=== PATIENT | female | born 1995 | race Caucasian/White ===

== ENCOUNTER 2016-12-03 14:45 | Inpatient (IN) | payer OTHER ==
[~2016-12-03] VITALS: Ht 162.6 cm; Wt 80.7 kg
[~2016-12-03 14:45] MED LIST: Morphine PF 1 mg/mL 10 mL Inj ONE; Ondansetron 2 mg/mL 2 mL Inj ONE; Oxytocin 10 Unit/mL Inj ONE; TAM75UDCAP PO; fentaNYL-PF 50 mCg/mL 2 mL Inj ONE
[2016-12-03] MEDS ORDERED: Hemorrhage Kit, Post Partum XX PRN (16:00)
[2016-12-03] MEDS ORDERED: CeFAZolin 2 Gm/50 mL D5W Premix IV ONE (16:00)
[2016-12-03 16:10] LABS: Mean Corpuscular Hemoglobin 28.6 pg (27.0-35.0); Mean Corpuscular Volume 86.5 fL (81-100)
--- NOTE | 2016-12-03 16:46 | PCM.HPANE ---
Patient Data Date of Service: Dec 03, 2016 Surgeon Admitting Provider:Mendez Bo MD Attending Provider:Mendez Bo MD Primary Care Physician:Karel Other Provider:Tracee Romero Anesthesia Reason for Visit repeat c section repeat c section Ht/WT & BMI Weight (Kilograms): 80.7 Body Mass Index 30.6 Allergies Coded Allergies: No Known Allergies (Unverified , 05/26/15) Past Anesthesia History Anesthesia History: Denies:: Abnormal Airway Diabetes History Hx Diabetes?: No MRSA MRSA: No Medications Hypertension Medication: No Home Meds Incl Beta Tiara: No Active Scripts Oseltamivir Phosphate (Tamiflu)75 Mg Pbyecmm66 Mg PO BID #9 CAPSULE Ref 0 Prov:Sushant Duarte 05/26/15 History History of ENT Problems?: No HEENT History: Denies:: Abnormal Airway Denture Type: None Teeth Condition: Within Normal Limits Hx of Heart Problems?: No Cardiovascular History: Denies:: Congestive Heart Failure Hypertension Hx of Respiratory Problem?: No Respiratory History: Denies:: Tuberculosis Hx Neurologic Problems?: No Hx of GI Problems?: No Gastrointestinal History: Denies:: Gastroesphageal Reflux Hx of Problems?: No HX of Peritoneal Dialysis: No Female Hx: Positive for:: Currently (Hx previous C/S) Hx Musculoskeletal Problems?: No Hx of Psycho/Social Problems?: No Hx Surgeries?: Yes (APPY, C SECTION, TONSILS) Hx Diabetes: No Hx Alcohol Use: NoHx Substance Use: No Smoking Status: Never Smoker Have You Smoked inLast 12 mo: No Stop/Bang Treated for Sleep Apnea?: No Do You Have a CPAP Machine?: No SURJIT Risk Assessment: Low Risk, <3 Yes Risk Assessment Category Category 1A: Patient has history of documented sleep apnea, and HAS NOT received any narcotic, sedative or anesthesia administration during this stay. Category 1B: Patient has history of documented sleep apnea, and HAS received any narcotic , sedative or anesthesia administration during this stay Category 2: Patient has SUSPECTED Obstructive Sleep Apnea, and HAS received any narcotic , sedative or anesthesia administration during this stay. Category 3: Patient has SUSPECTED Obstructive Sleep Apnea and HAS NOT received narcotic, sedative or anesthesia administration during this stay. Category 4: Outpatient in Procedural Areas with known sleep apnea or who screen positive for High Risk via the STOP/BANG questionnaire. Exam Exam General Appearance: Alert, Oriented X3, Cooperative HEENT/AIRWAY: MP 2, Neck Movement (FUll), Mouth Opening (Wide) Lungs: Clear to Auscultation, Normal Air Movement Heart: Regular Rate/Rhythm, Normal S1, Normal S2 Meds/Labs/Diagnostics Admission Meds Current Medications Lactated Ringer's (Lr) 1,000 ml @ 125 mls/hr Q8H IV Last administered on t 16:24; Start 12/03/16 at 16:00; Stop 12/03/16 at 23:59 Labs Test 12/03/16 15:35 12/03/16 16:00 Hold Purple Top Tube Received (Received) White Blood Count 14.1th/mm3 (3.8-10.1) Red Blood Count 4.51mil/mm3 (3.90-5.20) Hemoglobin 12.9g/dL (12.0-15.6) Hematocrit 39.0% (35.0-46.0) Mean Corpuscular Volume 86.5fL (81-100) Mean Corpuscular Hemoglobin 28.6pg (27.0-35.0) Mean Corpuscular Hemoglobin Concent 33.1% (32.0-37.0) Red Cell Distribution Width 14.1% (12.3-15.4) Platelet Count 258bil/L (150-400) Plan Impression Patient chart reviewed, patient interviewed and anesthestic plan with risks, benefits, and alternatives discussed, and informed consent obtained. NPO per Anesth. Guidelines: Yes ASA Physical Status: ASA2 Mod Systemic Disease Anesthetic Plan: SAB Bene/Risks/Altern/Consents: Yes HP Complete Prior to Induction: Yes Cassius Maki MD Dec 03, 2016 16:46
[2016-12-03] MEDS ORDERED: Dexamethasone 4 mg/mL Inj IVPUSH PRN (16:50)
[2016-12-03] MEDS ORDERED: Atropine 0.4 mg/mL Inj IV PRN (16:50)
[2016-12-03] MEDS ORDERED: MetoCLOpramide 5 mg/mL 2 mL Inj IVPUSH PRN (16:50)
[2016-12-03] MEDS ORDERED: Ondansetron 2 mg/mL 2 mL Inj IVPUSH PRN (16:50)
[2016-12-03] MEDS ORDERED: EPHEDrine Sulfate 50 mg/mL Inj IVPUSH PRN (16:50)
[2016-12-03] MEDS ORDERED: fentaNYL-PF 50 mCg/mL 2 mL Inj IVPUSH PRN (16:50)
[2016-12-03] MEDS ORDERED: Sodium Citrate-Citric Acid 15 mL Solution ONE (17:20)
[2016-12-03] MEDS ORDERED: Sodium Citrate-Citric Acid 15 mL Solution PO ONE (17:29)
[2016-12-03] MEDS ORDERED: Lactated Ringer's 1,000 ML IV SCH (19:21)
[2016-12-03] MEDS ORDERED: hydrOXYzine Pamoate 25 mg Capsule PO PRN (19:25)
[2016-12-03] MEDS ORDERED: Influenza (Adult) Vaccine 0.5 mL Syringe IM ONE (19:25)
[2016-12-03] MEDS ORDERED: Hemorrhage Kit, Post Partum XX ONE (19:25)
[2016-12-03] MEDS ORDERED: TdaP Vaccine 0.5 mL Inj IM ONE (19:25)
[2016-12-03] MEDS ORDERED: Measles-Mumps-Rubella Vaccine 0.5 mL Inj SUBQ ONE (19:25)
[2016-12-03] MEDS ORDERED: Oxytocin 30 Units/500 mL LR 30 UNITS in IV Premix 1 EACH IV PRN (19:25)
[2016-12-03] MEDS ORDERED: Oxytocin 10 Unit/mL Inj IM PRN (19:25)
[2016-12-03] MEDS ORDERED: Acetaminophen IV 1,000 MG in IV Premix 1 EACH IV PRN (19:25)
[2016-12-03] MEDS ORDERED: LANOlin HPA 7 Gm Ointment TOPICAL PRN (19:25)
[2016-12-03] MEDS ORDERED: Carboprost 250 mCg/mL Inj IM PRN (19:25)
[2016-12-03] MEDS ORDERED: Sodium Chloride LOK Flush 10 mL Syringe IVFLUSH PRN (19:25)
[2016-12-03] MEDS ORDERED: Methylergonovine 0.2 mg/mL Inj IM PRN (19:25)
--- NOTE | 2016-12-03 20:38 | PCM.ANEP1 ---
Post Anesthesia PACU Phase 1 Assessment Date of Service: Dec 03, 2016 Vital Signs See OB documentation Anesthetic Administered: SAB Level of Alertness: Awake, talking ENRIQUEZ's with Equal Strength: No Pain: No Pain Scale Score: 0 Nausea or Vomiting: No CV Function & Hydration Stable: Yes Airway Device: Oxygen Delivery: Room Air Lungs: Normal Air Movement Dermatome Level: T10 (Umbilicus) PACU Phase 2 Assessment Complications: No Follow up Care: N/A Patient Instructions Provided: N/A Cassius Maki MD Dec 03, 2016 20:37
[2016-12-04] MEDS: CeFAZolin Inj 2 GM in IV Premix 1 EACH IV SCH ×2 (02:28→10:33)
--- NOTE | 2016-12-04 04:14 | HP ---
[address] [address] HISTORY AND PHYSICAL PATIENT: PIPER OROPEZA : 1995 MR#: [id number] ADMIT: 12/03/2016 JOB ID: [id number] DATE: 12/03/2016, at 12:00 hour. [facility] NOTE: The patient is a 21-year-old, G2, P1, AB0, woman, followed prenatally at [facility], see record for details. Due date is December 06, 2016, placing the patient at 39 and 4/7 weeks of gestation on admission. She has had prior section for breech, and she requested trial of labor this time as in vertex presentation. However, if undelivered by December 03, 2016, she requested repeat section be accomplished, and this is the reason for admission today as labor and delivery have not occurred. The patient has understood the risks of surgery, including bleeding, infection, injury to the urinary tract and bowel, anesthetic risks, incisional problems, postoperative deep venous thrombosis/pulmonary embolus, etc. She has had all her questions answered, no guarantees have not been stated or implied, and she has signed informed consent for surgery. In summary, then, the patient has been admitted to [facility] at 39 and 4/7 weeks gestation on December 03, 2016, for repeat section, yet no tubal ligation. PHYSICAL EXAMINATION: Last height, weight and blood pressure in the office: 63 inches, 180 pounds and 118/60 respectively. Neck: No thyromegaly. Lungs: Clear to auscultation and percussion. Heart: Regular in rate and rhythm. Abdomen: Fundal height at last check 38.5 cm in the office. Positive heartbeat. Vertex presentation. Cervical examination deferred currently. DIAGNOSTIC DATA: See laboratory report for results. IMPRESSION: 1. A 39 and 4/7 weeks gestation. 2. Prior section, now for repeat at patient's request after initial interest in trial of labor until today. 3. Planning IUD for contraception . 4. Increased weight gain in (close to 50 pounds). 5. Rh-negative status, having received RhoGAM injection during . 6. Mild anemia noted early in the third trimester, having used iron therapy subsequently. 7. Surgical history: a. (2014). b. Appendectomy (2007). 8. No known drug allergies. 9. Family history of diabetes (father), hypertension (father), thyroid disease (mother), and uterine cancer (mother). PLAN: The patient has been admitted to [facility] on December 03, 2016, for repeat section at her request.
[2016-12-04] MEDS ORDERED: Sodium Citrate-Citric Acid 15 mL Solution PO ONE (06:00)
[2016-12-04 06:49] LABS: Mean Corpuscular Hemoglobin 28.9 pg (27.0-35.0); Mean Corpuscular Volume 87.1 fL (81-100)
[2016-12-04] MEDS: oxyCODONE-Acetamin 5-325 mg Tablet PO PRN ×4 (08:03→20:30)
[2016-12-05] MEDS: oxyCODONE-Acetamin 5-325 mg Tablet PO PRN ×4 (00:45→11:52)
--- NOTE | 2016-12-05 07:03 | PCM.DIOB ---
Obstetrical Disch Instruction Dates of Hospitalization Date of Hospital Admission Dec 03, 2016 at 14:45 Providers Admitting Physician: Mendez Bo MD Primary Care Physician: Nopcp Attending Physician: Mendez Bo MD Discharge Diagnosis Problems: (1) Status: Acute ICD Code: Z33.1 (2) Previous section Status: Acute ICD Code: Z98.891 Diet Discharge Diet: No restrictions Activity Discharge Activity-General: Pelvic Rest for 6 weeks, No lifting >10 pounds for 4-6 weeks Dressing and Incisional Care Dressing Care: Allow Steri Stripes to fall off Hygiene: May shower, DO NOT soak incision under water Follow Up Plan Follow-up appointment: Weeks (Followup in 2 and 6 weeks for checkups at [facility].) Call your provider for: Fever or Chills, Shortness of breath, Heavy vaginal bleeding, Red painful breasts Mendez Bo MD Dec 05, 2016 07:03
[2016-12-05] MEDS ORDERED: DOCU-41 PO (07:07)
[2016-12-05] MEDS ORDERED: IBUP-1827 PO (07:07)
[2016-12-05] MEDS ORDERED: OXYC1TAB24 PO (07:07)
[2016-12-05 09:59] VITALS: BP 117/61; PULSE 73; RESP 20
--- NOTE | 2016-12-05 11:23 | OP ---
[address] [address] OPERATIVE REPORT PATIENT: PIPER OROPEZA : 1995 MR#: [id number] ADMIT: 12/03/2016 JOB ID: [id number] DATE OF SURGERY: 12/03/2016 SURGEON: Mendez Bo MD. POLYGRAPH OPERATOR: Farhan Messer MD. ANESTHESIA: Spinal. PREOPERATIVE DIAGNOSIS(ES): 1. Term . 2. Prior section, for scheduled repeat . POSTOPERATIVE DIAGNOSIS(ES): 1. Term . 2. Prior section, for scheduled repeat . PROCEDURES PERFORMED: Repeat low segment transverse section. INDICATIONS FOR SURGERY: This patient has previously had a section for breech presentation. She had requested trial of labor, understanding benefits and risks, benefits, but if undelivered by December 03, 2016, she had requested that we schedule a repeat . She did not deliver prior to December 03, 2016, and thus, she came in on that day for repeat , which was accomplished. She understood risks of surgery which include bleeding, infection, injury to the urinary tract and bowel, anesthetic risks, postoperative deep venous thrombosis and pulmonary embolus, potential wound problems and pain, etc. All questions were answered, no guarantees stated or implied, and patient signed the informed consent for surgery, which was accomplished. FINDINGS AT SURGERY: Fetus was in vertex presentation, and amniotic fluid was clear. was active and crying and vigorous on the operative field. Note that baby weighed about 2 pounds larger than the first. Ovaries and tubes were normal in appearance. After some initial mild uterine atony, the uterus contracted well. Blood loss during the case was about 600 cc, although greater than usual. Note that there was no excessive scarring or other concerns. At procedure's close, baby and placenta had been delivered. Placenta was sent for disposal. Baby was active and crying and vigorous. Note that there was no internal bleeding occurring at any point. Urine was clear. It certainly is anticipated that mother and baby will do very well during the postoperative/ timeframe. PROCEDURE IN DETAIL: The patient was placed in the supine position on the operating table after activation of spinal anesthesia. She was repositioned in a left lateral tilt position, and a Dempsey catheter was placed. The abdomen was then prepped and draped in the usual sterile manner and appropriate time-out was taken and then, was brought into the room. A Pfannenstiel incision was made through the old surgical scar, and carried through skin, subcutaneous tissues and fascial layer. Rectus muscles from the overlying fascia using blunt and sharp dissection, noting some scarring consistent with prior surgery. The peritoneal cavity was then carefully entered between the rectus muscles, and a bladder blade was placed. A transverse incision was then made in the lower uterine segment beneath the vesicouterine peritoneal fold. Bladder flap was developed using blunt dissection, and the incision was carried onward down to the amniotic sac, which was then ruptured and clear fluid recovered. As the uterine incision was adequate, head was brought through the incision followed directly by the shoulders, body and extremities. Baby was active and crying and vigorous on the operative field, and dried and stimulated. After 1 minute of delay, umbilical cord was clamped and cut. The was taken to the warmer for drying and further stimulation before being brought back to the parents. Cord blood was obtained for routine studies. Placenta with membranes were then massaged from the uterus, intact. Uterus contracted well after a short time of mild atony, and then remained well contracted throughout the case. Uterine cavity was gauze curettaged and the cervix was noted to be 1 to 1.5 cm dilated. Uterine cavity was closed first with a running locking stitch of #1 chromic suture, followed by placement of an overlying/imbricating stitch of #1 chromic suture in a running manner. This provided both hemostasis, as well as solid support to the lower uterine segment wall. Note that there was no further uterine incisional bleeding, and urine was clear and bladder intact. Ovaries and tubes were inspected, and the posterior cul-de-sac area was irrigated and then suctioned of blood and clots and fluid. The uterus was then returned to the abdominal cavity, and gutter areas were cleared of blood and clots and fluid. Final lower uterine segment wall demonstrated no bleeding at the incision point or elsewhere, and urine was clear and bladder intact. Instrument, needle and sponge counts were all found to be correct. Rectus muscles were then drawn together across the midline using interrupted stitches of #1 chromic suture. The subfascial plane was inspected and cautery applied where needed to effect complete hemostasis. The fascial layer was then closed with #1 PDS, using great care to bury the knot on each end. Subcutaneous tissues were then irrigated and then cautery utilized where needed. Skin incision was then closed with maxx, and pressure dressing was applied. Uterus was expressed of blood and clots. Procedure was complete. The patient was taken to her room for recovery. ESTIMATED BLOOD LOSS: 600 cc. COMPLICATIONS: None. PROGNOSIS: Good for surgical recovery. ARYA
--- NOTE | 2016-12-05 11:43 | PROG NOTE ---
[address] [address] PROGRESS NOTE PATIENT: PIPER OROPEZA : 1995 MR#: [id number] ADMIT: 12/03/2016 JOB ID: [id number] DATE: 12/04/2016 POSTOPERATIVE DAY NUMBER ONE/ DAY NUMBER ONE NOTE: The patient underwent repeat low transverse section in the evening of December 03, 2016. During the postoperative/ timeframe the patient has done well with stable vitals, afebrile, with reasonable bleeding and pain management, ambulating and voiding, without leg pain or shortness of breath, and without incisional problem. She has handled baby well. hemoglobin was acceptable. IMPRESSION: 1. Postoperative number one/ day number one following repeat section. 2. Nursing mother. PLAN: Continue postoperative/ care, anticipating discharge to home on the second postoperative day/ day i.e. on December 05, 2016.
--- NOTE | 2016-12-05 12:22 | DIS ---
[address] [address] DISCHARGE SUMMARY PATIENT: PIPER OROPEZA : 1995 MR#: [id number] ADMIT: 12/03/2016 JOB ID: [id number] DIS: DISCHARGE DIAGNOSES: 1. Term , delivered. 2. Status post repeat section. PROCEDURES PERFORMED DURING HOSPITALIZATION: 1. Repeat low transverse section. 2. Spinal anesthesia. HOSPITAL COURSE: The patient was admitted to [facility] on December 03, 2016, on which day she underwent repeat section. During the postoperative/ timeframe, the patient did well, with stable vitals, afebrile, with reasonable bleeding, ambulating, voiding, without incisional problem, without leg pain or shortness of breath. She handled baby well. Note that postoperative/ hemoglobin was acceptable. Rolla were removed on the day of discharge, which was December 05, 2016, at the patient's request. DISCHARGE PROGRAM: The patient will call p.r.n., yet otherwise will follow up at two weeks for incision check and then at six weeks for final postoperative/ checkup. She will observe pelvic rest for six weeks and do no heavy lifting for six weeks. DISCHARGE MEDICATIONS: Include: 1. Percocet 5/325. 2. Ibuprofen 600. 3. Colace 100, prescriptions written. 4. She will also use vitamin daily, and she has a supply at home.
== END 2016-12-05 13:18 | disposition home or self-care (01) | DRG 765 ==
LOC: FBC 14:45 → EDSTATUS 17:00
PROVIDERS: ADMIT Obstetrics & Gynecology; ATTEND Obstetrics & Gynecology
PROC: 10D00Z1 Extraction of Products of Conception, Low, Open Approach (ICD-10-PCS; principal; 2016-12-04)
DX: O34.211 Maternal care for low transverse scar from previous cesarean delivery (principal); O72.1 Other immediate postpartum hemorrhage; Z3A.39 39 weeks gestation of pregnancy; Z37.0 Single live birth